=== PATIENT | male | born 1950 | race African-American/Black ===

== ENCOUNTER 2017-01-02 06:57 | Emergency (ER) | payer OTHER ==
[~2017-01-02] VITALS: Ht 167.6 cm; Wt 90.3 kg
[~2017-01-02 06:57] MED LIST: ASPI325T4 PO; IBUP200T2; METO-169 PO; SIMV-13 PO; TRIA25CA
[2017-01-02 08:04] LABS: Basophils # (auto) 0 uL; Basophils % (auto) 0.3 % (0.0-2.0); Eosinophils # (auto) 0.1 uL; Eosinophils % (auto) 1.4 % (0.0-7.0); Hematocrit 50.1 % (41.0-53.0); Hemoglobin 16.5 g/dL (13.5-17.5); Lymphocytes # (auto) 1.3 uL; Lymphocytes % (auto) 22.1 % (10.0-50.0); Mean Corpuscular Hemoglobin 28.3 pg (28.0-32.0); Mean Corpuscular Hgb Conc. 32.9 g/dL (32.0-36.0); Mean Platelet Volume 8.3 fL (7.4-10.4); Monocytes # (auto) 0.6 uL; Monocytes % (auto) 10.4 % (0.0-12.0); Neutrophils # (auto) 3.9 uL; Neutrophils % (auto) 65.8 % (37.0-80.0); Platelet Count (auto) 162 10^3/uL (140-450); SUSPECT VIEW TRANSMISSION; White Blood Cell 5.9 10^3/uL (4.4-10.8)
[2017-01-02 08:23] LABS: Albumin 3.7 g/dL (3.4-5.0); Alkaline Phosphatase 85 U/L (45-117); Anion Gap 8 (5-15); Aspartate Aminotransferase 42 U/L (15-37); BUN/Creatinine Ratio 8.8; Bilirubin, Total 0.6 mg/dL (0.2-1.0); Blood Urea Nitrogen 11 mg/dL (7-18); Calcium 8.5 mg/dL (8.5-10.1); Carbon Dioxide 27 mmol/L (21-32); Chloride 110 mmol/L (98-107); GFR African American 74 mL/min; GFR Non-African American 61 mL/min; Glucose 94 mg/dL (74-106); Potassium 3.8 mmol/L (3.5-5.1); Sodium 145 mmol/L (136-145)
[2017-01-02] MEDS ORDERED: cloNIDine 0.2 mg/24hr 7DAY PATCH TD ONE (10:45)
[2017-01-02] MEDS ORDERED: cloNIDine HCL 0.1 MG TAB ONE (11:00)
[2017-01-02] MEDS ORDERED: cloNIDine HCL 0.1 MG TAB PO ONE (11:00)
[2017-01-02 11:15] LABS: B-Type Natriuretic Peptide 47.58 pg/mL (0-100)
[2017-01-02 12:02] VITALS: BP 200/104
== END 2017-01-02 12:10 | disposition home or self-care (01) ==
LOC: ER 06:58
DX: J20.9 Acute bronchitis, unspecified (principal); I10 Essential (primary) hypertension; R06.02 Shortness of breath; E78.5 Hyperlipidemia, unspecified; Z79.82 Long term (current) use of aspirin; Z86.73 Personal history of transient ischemic attack (TIA), and cerebral infarction without residual deficits; Z96.653 Presence of artificial knee joint, bilateral; Z95.0 Presence of cardiac pacemaker; Z91.19 Patient's noncompliance with other medical treatment and regimen
CPT/HCPCS: 36415; 71020; 80053; 83880; 84484; 85025; 93005

== ENCOUNTER 2017-11-20 06:39 | Emergency (ER) | payer OTHER, MEDICAID ==
[~2017-11-20] VITALS: Ht 165.1 cm; Wt 86.6 kg
[2017-11-20 07:26] LABS: Urine Bacteria NONE SEEN /hpf (None Seen); Urine Blood Negative /uL (Negative); Urine Specific Gravity 1.004 (1.001-1.035); Urine WBC 1 /hpf (0 - 3)
[2017-11-20 07:41] LABS: Basophils # (auto) 0 uL; Basophils % (auto) 0.3 % (0.0-2.0); Eosinophils # (auto) 0 uL; Eosinophils % (auto) 0.4 % (0.0-7.0); Hematocrit 50.5 % (41.0-53.0); Hemoglobin 16.9 g/dL (13.5-17.5); Lymphocytes # (auto) 1.3 uL; Mean Corpuscular Hemoglobin 28.6 pg (28.0-32.0); Mean Corpuscular Hgb Conc. 33.4 g/dL (32.0-36.0); Mean Corpuscular Volume 85.6 fL (80.0-100.0); Monocytes % (auto) 13.9 % (0.0-12.0); Neutrophils # (auto) 4.8 uL; Neutrophils % (auto) 67.4 % (37.0-80.0); Nucleated Red Blood Cells % 0.1 %; Platelet Count (auto) 155 10^3/uL (140-450); Red Blood Cells 5.89 10^6/uL (4.5-5.90); Red Cell Distribution Width 13.9 % (11.8-14.3); White Blood Cell 7.1 10^3/uL (4.4-10.8)
[2017-11-20 07:43] LABS: Alanine Aminotransferase 32 U/L (16-61); Albumin 3.8 g/dL (3.4-5.0); Anion Gap 7 (5-15); Aspartate Aminotransferase 19 U/L (15-37); BUN/Creatinine Ratio 10.6; Blood Urea Nitrogen 13 mg/dL (7-18); Calcium 9.2 mg/dL (8.5-10.1); Carbon Dioxide 26 mmol/L (21-32); Chloride 105 mmol/L (98-107); GFR African American 75 mL/min; GFR Non-African American 62 mL/min; Glucose 102 mg/dL (74-106); Potassium 3.9 mmol/L (3.5-5.1); Sodium 138 mmol/L (136-145)
[2017-11-20 07:52] LABS: Alkaline Phosphatase 70 U/L (45-117); Bilirubin, Total 0.7 mg/dL (0.2-1.0); Total Protein 7.3 g/dL (6.4-8.2)
[2017-11-20] MEDS ORDERED: cloNIDine HCL 0.1 MG TAB PO ONE (08:00)
[2017-11-20] MEDS ORDERED: NALBUPHINE HCL 10 MG/1ml INJECTION IM ONE (08:00)
[2017-11-20] MEDS ORDERED: LORazepam 0.5 MG TAB PO ONE (08:00)
[2017-11-20 10:11] VITALS: BP 138/95
[2017-11-20] MEDS ORDERED: cefTRIAXone W LIDOCAINE 1 GM IM IM ONE (10:15)
[2017-11-20] MEDS ORDERED: HYDROcodone-ACET 5/325MG TAB PO ONE (10:15)
[2017-11-20] MEDS ORDERED: cefTRIAXone SOD 1,000 MG VL ONE (10:35)
== END 2017-11-20 10:52 | disposition home or self-care (01) ==
LOC: ER 06:39
DX: I10 Essential (primary) hypertension (principal); J32.9 Chronic sinusitis, unspecified; Z95.0 Presence of cardiac pacemaker
CPT/HCPCS: 36415; 70450; 71045; 80053; 81001; 83735; 84484; 85025; 93005; 96372; 99285; J0696; J2300

== ENCOUNTER 2018-01-10 12:26 | Emergency (ER) | payer OTHER, MEDICAID ==
[~2018-01-10] VITALS: Ht 165.1 cm; Wt 86.2 kg
[2018-01-10 13:06] LABS: Basophils # (auto) 0 uL; Basophils % (auto) 0.2 % (0.0-2.0); Eosinophils # (auto) 0.1 uL; Eosinophils % (auto) 2.1 % (0.0-7.0); Hematocrit 50.3 % (41.0-53.0); Hemoglobin 16.3 g/dL (13.5-17.5); Lymphocytes # (auto) 1.5 uL; Lymphocytes % (auto) 31.5 % (10.0-50.0); Mean Corpuscular Hemoglobin 28.1 pg (28.0-32.0); Mean Corpuscular Hgb Conc. 32.5 g/dL (32.0-36.0); Mean Corpuscular Volume 86.4 fL (80.0-100.0); Monocytes # (auto) 0.4 uL; Monocytes % (auto) 9.3 % (0.0-12.0); Neutrophils # (auto) 2.7 uL; Neutrophils % (auto) 56.9 % (37.0-80.0); Nucleated Red Blood Cells % 0.2 %; Platelet Count (auto) 145 10^3/uL (140-450); Red Blood Cells 5.83 10^6/uL (4.5-5.90); Red Cell Distribution Width 14.5 % (11.8-14.3); White Blood Cell 4.7 10^3/uL (4.4-10.8)
[2018-01-10 13:21] LABS: Alanine Aminotransferase 22 U/L (16-61); Albumin 3.8 g/dL (3.4-5.0); Anion Gap 7 (5-15); Aspartate Aminotransferase 25 U/L (15-37); BUN/Creatinine Ratio 10.9; Blood Urea Nitrogen 12 mg/dL (7-18); Calcium 8.7 mg/dL (8.5-10.1); Carbon Dioxide 22 mmol/L (21-32); Chloride 109 mmol/L (98-107); GFR African American 85 mL/min; GFR Non-African American 71 mL/min; Glucose 94 mg/dL (74-106); Potassium 3.7 mmol/L (3.5-5.1); Sodium 138 mmol/L (136-145)
[2018-01-10 13:25] LABS: Alkaline Phosphatase 69 U/L (45-117); Bilirubin, Total 0.4 mg/dL (0.2-1.0)
[2018-01-10 13:29] VITALS: BP 159/104
[2018-01-10] MEDS ORDERED: ASPirin 81 mg TAB PO ONE (14:00)
[2018-01-10 16:10] LABS: Urine Bacteria NONE SEEN /hpf (None Seen); Urine Blood Negative /uL (Negative); Urine Specific Gravity 1.003 (1.001-1.035); Urine WBC <1 /hpf (0 - 3)
[2018-01-10] MEDS ORDERED: cloNIDine HCL 0.1 MG TAB PO ONE (17:30)
== END 2018-01-10 17:53 | disposition home or self-care (01) ==
LOC: ER 12:26
DX: I10 Essential (primary) hypertension (principal); Z86.73 Personal history of transient ischemic attack (TIA), and cerebral infarction without residual deficits
CPT/HCPCS: 36415; 70450; 71046; 80053; 81001; 84484; 85025

== ENCOUNTER 2019-06-06 16:18 | Emergency (ER) | payer OTHER, MEDICAID ==
[~2019-06-06] VITALS: Ht 152.4 cm; Wt 88.5 kg
[2019-06-06 17:17] LABS: Basophils # (auto) 0 uL; Basophils % (auto) 0.5 % (0.0-2.0); Eosinophils # (auto) 0.1 uL; Eosinophils % (auto) 1.9 % (0.0-7.0); Hematocrit 48.4 % (41.0-53.0); Hemoglobin 16.1 g/dL (13.5-17.5); Lymphocytes # (auto) 1.6 uL; Lymphocytes % (auto) 29.9 % (10.0-50.0); Mean Corpuscular Hemoglobin 28.7 pg (28.0-32.0); Mean Corpuscular Hgb Conc. 33.2 g/dL (32.0-36.0); Mean Corpuscular Volume 86.4 fL (80.0-100.0); Monocytes # (auto) 0.6 uL; Monocytes % (auto) 10.6 % (0.0-12.0); Neutrophils # (auto) 3.1 uL; Neutrophils % (auto) 57.1 % (37.0-80.0); Nucleated Red Blood Cells % 0.2 %; Platelet Count (auto) 142 10^3/uL (140-450); Red Cell Distribution Width 14.7 % (11.8-14.3); White Blood Cell 5.4 10^3/uL (4.4-10.8)
[2019-06-06] MEDS ORDERED: SODIUM CHLORIDE 0.9% 1,000 ML IV ONE (17:33)
[2019-06-06] MEDS ORDERED: LORazepam 2MG/ML-1ML VIAL IV ONE (17:45)
[2019-06-06 17:48] LABS: INR 0.97 (0.9-1.15); Partial Thromboplastin Time 28.8 sec (23.64-32.05)
[2019-06-06 18:00] VITALS: BP 146/89
[2019-06-06 18:25] LABS: Alanine Aminotransferase 33 U/L (16-61); Albumin 3.8 g/dL (3.4-5.0); Aspartate Aminotransferase 28 U/L (15-37); BUN/Creatinine Ratio 12.2; Blood Urea Nitrogen 18 mg/dL (7-18); Calcium 8.7 mg/dL (8.5-10.1); Carbon Dioxide 23 mmol/L (21-32); GFR African American 60 mL/min; GFR Non-African American 50 mL/min; Glucose 98 mg/dL (74-106)
[2019-06-06 18:31] LABS: Alkaline Phosphatase 70 U/L (45-117); Anion Gap 9 (5-15); Bilirubin, Total 0.7 mg/dL (0.2-1.0); Chloride 108 mmol/L (98-107); Potassium 3.9 mmol/L (3.5-5.1); Sodium 140 mmol/L (136-145); Total Protein 6.7 g/dL (6.4-8.2)
== END 2019-06-06 20:02 | disposition home or self-care (01) ==
LOC: ER 16:18
DX: F10.239 Alcohol dependence with withdrawal, unspecified (principal); E78.5 Hyperlipidemia, unspecified; I10 Essential (primary) hypertension; Z86.73 Personal history of transient ischemic attack (TIA), and cerebral infarction without residual deficits; Z79.899 Other long term (current) drug therapy
CPT/HCPCS: 36415; 80053; 80320; 84484; 85025; 85610; 85730; 93005; 94761; 96374; 99284; J2060; J7030

== ENCOUNTER 2019-08-19 05:02 | Emergency (ER) | payer OTHER, MEDICAID ==
[~2019-08-19] VITALS: Ht 167.6 cm; Wt 89.4 kg
[2019-08-19] MEDS ORDERED: methylPREDNISolone SOD SUCC 125 MG/2 ML VL IM ONE (07:15)
[2019-08-19 07:19] LABS: Basophils # (auto) 0.1 uL; Basophils % (auto) 0.9 % (0.0-2.0); Eosinophils # (auto) 0.1 uL; Eosinophils % (auto) 1.2 % (0.0-7.0); Hematocrit 48.5 % (41.0-53.0); Hemoglobin 16.1 g/dL (13.5-17.5); Lymphocytes # (auto) 1.6 uL; Lymphocytes % (auto) 28.7 % (10.0-50.0); Mean Corpuscular Hemoglobin 29.1 pg (28.0-32.0); Mean Corpuscular Hgb Conc. 33.2 g/dL (32.0-36.0); Mean Corpuscular Volume 87.6 fL (80.0-100.0); Monocytes # (auto) 0.5 uL; Monocytes % (auto) 8.8 % (0.0-12.0); Neutrophils # (auto) 3.4 uL; Neutrophils % (auto) 60.4 % (37.0-80.0); Nucleated Red Blood Cells % 0.2 %; Platelet Count (auto) 121 10^3/uL (140-450); Red Blood Cells 5.53 10^6/uL (4.5-5.90); Red Cell Distribution Width 14.1 % (11.8-14.3); White Blood Cell 5.7 10^3/uL (4.4-10.8)
[2019-08-19 07:41] LABS: Albumin 3.4 g/dL (3.4-5.0); Anion Gap 9 (5-15); Blood Urea Nitrogen 15 mg/dL (7-18); Calcium 8.4 mg/dL (8.5-10.1); Carbon Dioxide 22 mmol/L (21-32); Chloride 109 mmol/L (98-107); Glucose 93 mg/dL (74-106); Potassium 3.7 mmol/L (3.5-5.1); Sodium 140 mmol/L (136-145)
[2019-08-19 07:44] LABS: Alanine Aminotransferase 30 U/L (16-61); Aspartate Aminotransferase 26 U/L (15-37); BUN/Creatinine Ratio 12.4; GFR African American 76 mL/min; GFR Non-African American 63 mL/min
[2019-08-19 07:48] LABS: Alkaline Phosphatase 74 U/L (45-117); Bilirubin, Total 0.4 mg/dL (0.2-1.0); Total Protein 6.9 g/dL (6.4-8.2)
[2019-08-19 08:05] VITALS: BP 139/79
== END 2019-08-19 09:42 | disposition home or self-care (01) ==
LOC: ER 05:02
DX: M48.02 Spinal stenosis, cervical region (principal); S46.911A Strain of unspecified muscle, fascia and tendon at shoulder and upper arm level, right arm, initial encounter; R20.0 Anesthesia of skin; E78.5 Hyperlipidemia, unspecified; I10 Essential (primary) hypertension; X58.XXXA Exposure to other specified factors, initial encounter; Y93.89 Activity, other specified; Y92.89 Other specified places as the place of occurrence of the external cause; Y99.8 Other external cause status
CPT/HCPCS: 36415; 70450; 72125; 80053; 84484; 85025; 93005; 96372; 99284; J2930

== ENCOUNTER 2019-11-24 20:52 | Emergency (ER) | payer OTHER, MEDICAID ==
[~2019-11-24] VITALS: Ht 165.1 cm; Wt 89.8 kg
[2019-11-24 22:20] LABS: Basophils # (auto) 0 uL; Basophils % (auto) 0.3 % (0.0-2.0); Eosinophils # (auto) 0.1 uL; Eosinophils % (auto) 1.9 % (0.0-7.0); Hemoglobin 17.2 g/dL (13.5-17.5); Lymphocytes # (auto) 1.8 uL; Lymphocytes % (auto) 30.7 % (10.0-50.0); Mean Corpuscular Hemoglobin 29.1 pg (28.0-32.0); Mean Corpuscular Hgb Conc. 33.7 g/dL (32.0-36.0); Mean Corpuscular Volume 86.3 fL (80.0-100.0); Monocytes # (auto) 0.5 uL; Monocytes % (auto) 8.6 % (0.0-12.0); Neutrophils # (auto) 3.5 uL; Neutrophils % (auto) 58.5 % (37.0-80.0); Nucleated Red Blood Cells % 0.7 %; Platelet Count (auto) 132 10^3/uL (140-450); Red Cell Distribution Width 13.7 % (11.8-14.3)
[2019-11-24 22:38] LABS: Albumin 3.8 g/dL (3.4-5.0); Anion Gap 7 (5-15); Blood Urea Nitrogen 17 mg/dL (7-18); Carbon Dioxide 25 mmol/L (21-32); Chloride 108 mmol/L (98-107); Glucose 107 mg/dL (74-106); Potassium 3.6 mmol/L (3.5-5.1); Sodium 140 mmol/L (136-145)
[2019-11-24 22:39] LABS: INR 1.01 (0.9-1.15); Partial Thromboplastin Time 29.1 sec (23.64-32.05)
[2019-11-24 22:46] LABS: Alanine Aminotransferase 36 U/L (16-61); Alkaline Phosphatase 83 U/L (45-117); Aspartate Aminotransferase 26 U/L (15-37); BUN/Creatinine Ratio 12.7; Bilirubin, Total 0.5 mg/dL (0.2-1.0); GFR African American 68 mL/min; GFR Non-African American 56 mL/min; Total Protein 7.3 g/dL (6.4-8.2)
[2019-11-25] MEDS ORDERED: LABETALOL HCL 5 MG/ML 4ML SYRINGE IV ONE (04:15)
[2019-11-25 05:00] VITALS: BP 160/101
== END 2019-11-25 05:05 | disposition home or self-care (01) ==
LOC: ER 20:52
DX: I25.10 Atherosclerotic heart disease of native coronary artery without angina pectoris (principal); R00.2 Palpitations; I49.9 Cardiac arrhythmia, unspecified; Z95.0 Presence of cardiac pacemaker; E78.5 Hyperlipidemia, unspecified; Z86.73 Personal history of transient ischemic attack (TIA), and cerebral infarction without residual deficits; Z79.899 Other long term (current) drug therapy
CPT/HCPCS: 36415; 71046; 80053; 83735; 83880; 84443; 84484; 85025; 85610; 85730; 93005

== ENCOUNTER 2021-03-28 09:35 | Emergency (ER) | payer OTHER, MEDICAID ==
[~2021-03-28] VITALS: Ht 167.6 cm; Wt 83.5 kg
[~2021-03-28 09:35] MED LIST changes: -METO-169 PO; +METO-289 PO
[2021-03-28 10:30] LABS: Basophils # (auto) 0 10 ^3/uL (0-0.2); Basophils % (auto) 0.2 % (0.0-2.0); Eosinophils # (auto) 0.2 10 ^3/uL (0-0.8); Eosinophils % (auto) 2.9 % (0.0-7.0); Hematocrit 47.1 % (41.0-53.0); Hemoglobin 15.5 g/dL (13.5-17.5); Lymphocytes # (auto) 1.9 10 ^3/uL (0.4-5.4); Lymphocytes % (auto) 36.2 % (10.0-50.0); Mean Corpuscular Hemoglobin 28.3 pg (28.0-32.0); Mean Corpuscular Volume 85.8 fL (80.0-100.0); Monocytes # (auto) 0.6 10 ^3/uL (0-1.3); Neutrophils # (auto) 2.6 10 ^3/uL (1.6-8.6); Neutrophils % (auto) 49.7 % (37.0-80.0); Nucleated Red Blood Cells % 0.1 %; Red Blood Cells 5.49 10^6/uL (4.5-5.90); White Blood Cell 5.2 10^3/uL (4.4-10.8)
[2021-03-28 10:45] LABS: Albumin 3.5 g/dL (3.4-5.0); Anion Gap 7 (5-15); Blood Urea Nitrogen 15 mg/dL (7-18); Calcium 8.7 mg/dL (8.5-10.1); Carbon Dioxide 22 mmol/L (21-32); Chloride 108 mmol/L (98-107); Glucose 101 mg/dL (74-106); Potassium 4.1 mmol/L (3.5-5.1); Sodium 137 mmol/L (136-145)
[2021-03-28 10:50] LABS: Alanine Aminotransferase 36 U/L (16-61); Alkaline Phosphatase 63 U/L (45-117); Aspartate Aminotransferase 36 U/L (15-37); BUN/Creatinine Ratio 11.4; Bilirubin, Total 0.4 mg/dL (0.2-1.0); GFR African American 68 mL/min; GFR Non-African American 57 mL/min; Total Protein 6.6 g/dL (6.4-8.2)
[2021-03-28] MEDS ORDERED: SODIUM CHLORIDE 0.9% 1,000 ML IV ONE (12:00)
[2021-03-28 12:43] LABS: Urine Bacteria NONE SEEN /hpf (None Seen); Urine Blood Negative /uL (Negative); Urine Specific Gravity 1.018 (1.001-1.035); Urine WBC 2 /hpf (0 - 3)
[2021-03-28 14:57] VITALS: BP 116/63
== END 2021-03-28 15:09 | disposition home or self-care (01) ==
LOC: ER 09:35
DX: R07.89 Other chest pain (principal); I10 Essential (primary) hypertension; E78.5 Hyperlipidemia, unspecified; Z95.0 Presence of cardiac pacemaker; Z86.73 Personal history of transient ischemic attack (TIA), and cerebral infarction without residual deficits; Z20.822 Contact with and (suspected) exposure to COVID-19; Z79.82 Long term (current) use of aspirin; Z79.1 Long term (current) use of non-steroidal anti-inflammatories (NSAID); Z79.899 Other long term (current) drug therapy
CPT/HCPCS: 36415; 71046; 80053; 81001; 83735; 84443; 84484; 85025; 85049; 87426; 93005; 96360; 96361; 99285; J7030

== ENCOUNTER 2021-11-15 19:59 | Emergency (ER) | payer OTHER, MEDICAID ==
[~2021-11-15] VITALS: Ht 167.6 cm; Wt 86.2 kg
[2021-11-15 20:00] VITALS: BP 129/87
[2021-11-15] MEDS ORDERED: RIV20T PO ×2 (21:29→22:36)
== END 2021-11-15 21:51 | disposition home or self-care (01) ==
LOC: ER 20:00
DX: I10 Essential (primary) hypertension (principal); E78.5 Hyperlipidemia, unspecified; Z86.73 Personal history of transient ischemic attack (TIA), and cerebral infarction without residual deficits; Z76.0 Encounter for issue of repeat prescription

== ENCOUNTER 2022-03-21 11:22 | Emergency (ER) | payer OTHER, MEDICAID ==
[~2022-03-21] VITALS: Ht 167.6 cm; Wt 83.0 kg
[~2022-03-21 11:22] MED LIST changes: +RIV20T PO
[2022-03-21 11:28] VITALS: BP 153/90
[2022-03-21 12:45] LABS: Basophils # (auto) 0 10 ^3/uL (0-0.2); Basophils % (auto) 0.4 % (0.0-2.0); Eosinophils # (auto) 0.1 10 ^3/uL (0-0.8); Eosinophils % (auto) 1.8 % (0.0-7.0); Hematocrit 46.6 % (41.0-53.0); Hemoglobin 15.9 g/dL (13.5-17.5); Lymphocytes # (auto) 1.4 10 ^3/uL (0.4-5.4); Lymphocytes % (auto) 27.4 % (10.0-50.0); Mean Corpuscular Hemoglobin 29.5 pg (28.0-32.0); Mean Corpuscular Hgb Conc. 34.1 g/dL (32.0-36.0); Mean Corpuscular Volume 86.6 fL (80.0-100.0); Monocytes # (auto) 0.4 10 ^3/uL (0-1.3); Monocytes % (auto) 8.9 % (0.0-12.0); Neutrophils # (auto) 3.1 10 ^3/uL (1.6-8.6); Neutrophils % (auto) 61.5 % (37.0-80.0); Nucleated Red Blood Cells % 0.1 %; Red Blood Cells 5.38 10^6/uL (4.5-5.90); Red Cell Distribution Width 13.5 % (11.8-14.3)
[2022-03-21 13:16] LABS: Albumin 3.8 g/dL (3.4-5.0); Calcium 8.9 mg/dL (8.5-10.1); Potassium 3.8 mmol/L (3.5-5.1)
[2022-03-21 13:20] LABS: BUN/Creatinine Ratio 9.5; Bilirubin, Total 0.8 mg/dL (0.2-1.0)
== END 2022-03-21 18:25 | disposition home or self-care (01) ==
LOC: ER 11:22
DX: R20.0 Anesthesia of skin (principal); I10 Essential (primary) hypertension; E78.5 Hyperlipidemia, unspecified; Z95.0 Presence of cardiac pacemaker; Z79.82 Long term (current) use of aspirin; Z79.1 Long term (current) use of non-steroidal anti-inflammatories (NSAID); Z79.899 Other long term (current) drug therapy
CPT/HCPCS: 36415; 70450; 80053; 84484; 85025; 93005

== ENCOUNTER 2023-01-26 10:41 | Inpatient (IN) | payer OTHER, MEDICAID ==
[~2023-01-26] VITALS: Ht 167.6 cm; Wt 80.2 kg
[2023-01-26 10:51] VITALS: BP 120/61
[2023-01-26] MEDS ORDERED: MECLIZINE HCL 25 MG TAB PO ONE (11:00)
[2023-01-26 11:33] LABS: Basophils # (auto) 0 10 ^3/uL (0-0.2); Basophils % (auto) 0.3 % (0.0-2.0); Eosinophils # (auto) 0.1 10 ^3/uL (0-0.8); Eosinophils % (auto) 1.2 % (0.0-7.0); Hematocrit 48.6 % (41.0-53.0); Hemoglobin 16.1 g/dL (13.5-17.5); Lymphocytes # (auto) 1.4 10 ^3/uL (0.4-5.4); Lymphocytes % (auto) 28.2 % (10.0-50.0); Mean Corpuscular Hemoglobin 29.4 pg (28.0-32.0); Mean Corpuscular Hgb Conc. 33.2 g/dL (32.0-36.0); Mean Corpuscular Volume 88.4 fL (80.0-100.0); Monocytes # (auto) 0.5 10 ^3/uL (0-1.3); Monocytes % (auto) 9.2 % (0.0-12.0); Neutrophils # (auto) 3.1 10 ^3/uL (1.6-8.6); Neutrophils % (auto) 61.1 % (37.0-80.0); Nucleated Red Blood Cells % 0.2 %; Red Cell Distribution Width 13.4 % (11.8-14.3); White Blood Cell 5.1 10^3/uL (4.4-10.8)
[2023-01-26 11:50] LABS: INR 1.49 (0.9-1.15); Partial Thromboplastin Time 50.8 sec (24.6-33.4)
[2023-01-26 12:17] LABS: Calcium 9.6 mg/dL (8.5-10.1); Potassium 4.1 mmol/L (3.5-5.1)
[2023-01-26 12:25] LABS: Albumin 3.8 g/dL (3.4-5.0); BUN/Creatinine Ratio 9.4 (10.0-20.0); Bilirubin, Total 0.7 mg/dL (0.2-1.0); Total Protein 6.7 g/dL (6.4-8.2)
[2023-01-26 16:07] LABS: Urine Bacteria NONE SEEN /hpf (None Seen); Urine Blood Negative /uL (Negative); Urine Mucus FEW (None Seen); Urine Specific Gravity 1.022 (1.001-1.035); Urine WBC 1 /hpf (0 - 3)
[2023-01-26 16:25] LABS: Alcohol, Urine < 3.0 mg/dL (0-10); Amphetamine Screen, Urine NEGATIVE (NEGATIVE); Barbiturate Scree,Urine NEGATIVE (NEGATIVE); Benzodiazephine Screen, Urine NEGATIVE (NEGATIVE); Cannabinoid Screen, Urine POSITIVE (NEGATIVE)
[2023-01-26 16:33] LABS: Cocaine Screen, Urine NEGATIVE (NEGATIVE); Opiate Scree,Urine POSITIVE (NEGATIVE); Phencyclidine Screen, Urine NEGATIVE (NEGATIVE)
[2023-01-26] MEDS ORDERED: ACETAMINOPHEN 325 MG TAB PO PRN (17:15)
[2023-01-26] MEDS ORDERED: SODIUM CHLORIDE 0.9% 500 ML IV ONE (17:15)
[2023-01-26] MEDS ORDERED: NITROGLYCERIN 0.4 MG SL TAB SL PRN (17:15)
[2023-01-26] MEDS ORDERED: MECLIZINE HCL 25 MG TAB PO PRN (17:15)
[2023-01-26] MEDS ORDERED: SODIUM CHLORIDE 0.9% 1,000 ML IV ONE (17:15)
[2023-01-26] MEDS ORDERED: MORPHINE SULFATE INJ 2 MG/ml SYRG IV PRN (17:15)
[2023-01-26] MEDS ORDERED: SODIUM CHLORIDE 0.9% 1,000 ML IV SCH (17:15)
[2023-01-27] MEDS ORDERED: ENOXAPARIN SOD 40 MG/0.4 ML SYRINGE SC SCH (10:00)
== END 2023-01-26 21:41 | disposition left against medical advice (07) | DRG 641 ==
LOC: ER 10:41 → TELE 17:18
PROVIDERS: ADMIT Nurse Practitioner Family; ATTEND Nurse Practitioner Family
DX: E86.0 Dehydration (principal); R42 Dizziness and giddiness; Z20.822 Contact with and (suspected) exposure to COVID-19; I10 Essential (primary) hypertension; Z53.29 Procedure and treatment not carried out because of patient's decision for other reasons; Z79.01 Long term (current) use of anticoagulants; Z80.9 Family history of malignant neoplasm, unspecified; Z82.49 Family history of ischemic heart disease and other diseases of the circulatory system; Z83.3 Family history of diabetes mellitus; Z86.73 Personal history of transient ischemic attack (TIA), and cerebral infarction without residual deficits; Z95.0 Presence of cardiac pacemaker
CPT/HCPCS: 36415; 70450; 71045; 71275; 80053; 80307; 81001; 83605; 83735; 83880; 84484; 85025; 85379; 85610; 85730; 87040; 93005; 93886; 96360; 96361; G0378

== ENCOUNTER 2023-01-31 15:00 | Emergency (ER) | payer OTHER, MEDICAID ==
[~2023-01-31] VITALS: Ht 167.6 cm; Wt 74.6 kg
[2023-01-31 15:55] VITALS: BP 143/86
[2023-01-31 16:16] LABS: Basophils # (auto) 0 10 ^3/uL (0-0.2); Basophils % (auto) 0.3 % (0.0-2.0); Eosinophils # (auto) 0.1 10 ^3/uL (0-0.8); Eosinophils % (auto) 0.8 % (0.0-7.0); Hematocrit 49.6 % (41.0-53.0); Hemoglobin 16.2 g/dL (13.5-17.5); Lymphocytes # (auto) 1.9 10 ^3/uL (0.4-5.4); Lymphocytes % (auto) 29.9 % (10.0-50.0); Mean Corpuscular Hemoglobin 28.9 pg (28.0-32.0); Mean Corpuscular Hgb Conc. 32.7 g/dL (32.0-36.0); Mean Corpuscular Volume 88.4 fL (80.0-100.0); Monocytes # (auto) 0.6 10 ^3/uL (0-1.3); Monocytes % (auto) 10.1 % (0.0-12.0); Neutrophils # (auto) 3.8 10 ^3/uL (1.6-8.6); Neutrophils % (auto) 58.9 % (37.0-80.0); Nucleated Red Blood Cells % 0.4 %; Red Blood Cells 5.61 10^6/uL (4.5-5.90); White Blood Cell 6.4 10^3/uL (4.4-10.8)
[2023-01-31 16:56] LABS: Alanine Aminotransferase 25 U/L (16-61); Albumin 4.3 g/dL (3.4-5.0); Alkaline Phosphatase 71 U/L (45-117); Anion Gap 7 (5-15); Aspartate Aminotransferase 26 U/L (15-37); BUN/Creatinine Ratio 11.4 (10.0-20.0); Bilirubin, Total 0.6 mg/dL (0.2-1.0); Blood Urea Nitrogen 15 mg/dL (7-18); Calcium 9.3 mg/dL (8.5-10.1); Carbon Dioxide 23 mmol/L (21-32); Chloride 113 mmol/L (98-107); GFR African American 68 mL/min; GFR Non-African American 56 mL/min; Glucose 101 mg/dL (74-106); Potassium 3.6 mmol/L (3.5-5.1); Sodium 143 mmol/L (136-145); Total Protein 7.1 g/dL (6.4-8.2)
[2023-01-31 16:57] LABS: Magnesium 2.3 mg/dL (1.6-2.6)
== END 2023-01-31 20:13 | disposition home or self-care (01) ==
LOC: ER 15:00
DX: R42 Dizziness and giddiness (principal); Z79.899 Other long term (current) drug therapy
CPT/HCPCS: 36415; 70450; 71045; 72125; 80053; 82962; 83605; 83735; 84443; 84484; 85025